=== PATIENT | female | born 1985 | race Caucasian/White ===

== ENCOUNTER 2021-12-25 03:15 | Emergency (ER) | payer OTHER ==
[2021-12-25 03:41] VITALS: BP 130/71; PULSE 66; TEMP 98.1; BMI 25.7
[2021-12-25] MEDS ORDERED: LIDOCAINE 5% TOPICAL PATCH TP ONE (03:53)
[2021-12-25] MEDS ORDERED: ACETAMINOPHEN 500 MG TABLET (FP) PO ONE (03:57)
[2021-12-25] MEDS ORDERED: ACETAMINOPHEN 325 MG TABLET (FP) ONE (03:59)
[2021-12-25] MEDS ORDERED: LIDOCAINE 5% TOPICAL PATCH ONE (03:59)
[2021-12-25] MEDS ORDERED: METHOCARBAMOL 500 MG TABLET PO ONE ×2 (04:13→04:24)
[2021-12-25] MEDS ORDERED: METHOCARBAMOL 500 MG TABLET ONE (04:29)
[2021-12-25 05:45] LABS: EPI CELLS >36 /uL (0-25.1); HYALINE CASTS 1 /uL (0-3.1); URINE APPEARANCE CLEAR; URINE BACTERIA 713 /uL (0-1359); URINE BILIRUBIN NEGATIVE (NEGATIVE); URINE COLOR YELLOW; URINE GLUCOSE (UA) NEGATIVE (NEGATIVE); URINE KETONE NEGATIVE (NEGATIVE); URINE LEUK ESTERASE TRACE (NEGATIVE); URINE NITRITE NEGATIVE (NEGATIVE); URINE PROTEIN NEGATIVE (NEGATIVE); URINE RBC 9 /uL (0-23.9); URINE UROBILINOGEN 0.2 mg/dL (0.2-1.0); URINE WBC 60 /uL (0-25.8)
[2021-12-25 09:45] LABS: URINE CRYSTALS PRESENT /hpf
[2021-12-25] MEDS ORDERED: LIDOCAINE PATCH REMOVAL MC SCH (22:00)
== END 2021-12-25 07:42 | disposition home or self-care (01) ==
LOC: JER 03:15
DX: R10.9 Unspecified abdominal pain (principal)
CPT/HCPCS: 74176-TC; 81003; 84703; 87086; 99284-25

== ENCOUNTER 2022-03-12 04:27 | Day surgery (SDC) | payer OTHER ==
[2022-02-22 10:56] VITALS: BMI 28.3
[2022-03-12] MEDS ORDERED: BUPIVACAINE HCL/PF 0.75% 10 ML VIAL NR ONE (11:31)
[2022-03-12] MEDS ORDERED: LIDOCAINE HCL 1%, 10 MG/ML (50 mL VIAL) NR ONE (11:31)
[2022-03-12 12:16] VITALS: BP 121/66; PULSE 63; TEMP 97.5
== END 2022-03-12 12:10 | disposition home or self-care (01) ==
LOC: JASU-SURG 04:27
PROVIDERS: ATTEND Pain Medicine Pain Medicine
PROC: BR16YZZ Fluoroscopy of Lumbar Facet Joint(s) using Other Contrast (ICD-10-PCS; 2022-03-12)
PROC: 3E0T3BZ Introduction of Anesthetic Agent into Peripheral Nerves and Plexi, Percutaneous Approach (ICD-10-PCS; principal; 2022-03-12 17:30)
DX: M47.816 Spondylosis without myelopathy or radiculopathy, lumbar region (principal)
CPT/HCPCS: 76000-TC-FY; 81025

== ENCOUNTER 2023-04-01 20:32 | Emergency (ER) | payer OTHER ==
[2023-04-01 20:47] VITALS: BP 99/61; PULSE 74; RESP 18; TEMP 98.2; BMI 23.3
[2023-04-01] MEDS ORDERED: KETOROLAC TROMETHAMINE 30 MG/1 ML VIAL IM ONE (21:42)
[2023-04-01] MEDS ORDERED: LIDOCAINE 5% TOPICAL PATCH TP ONE (21:43)
[2023-04-01] MEDS ORDERED: DEXAMETHASONE SOD PHOSPHATE 10 MG/1 ML VIAL IM ONE (21:43)
[2023-04-01] MEDS ORDERED: METHOCARBAMOL 500 MG TABLET PO ONE (21:43)
[2023-04-01] MEDS ORDERED: LIDOCAINE 5% TOPICAL PATCH ONE (21:55)
[2023-04-01] MEDS ORDERED: METHOCARBAMOL 500 MG TABLET ONE (21:55)
[2023-04-01] MEDS ORDERED: KETOROLAC TROMETHAMINE 30 MG/1 ML VIAL ONE (21:56)
[2023-04-01] MEDS ORDERED: DEXAMETHASONE SOD PHOSPHATE 10 MG/1 ML VIAL ONE (21:56)
[2023-04-01 21:57] LABS: EPI CELLS >36 /uL (0-25.1); HCG,QUALITATIVE URINE Negative; HYALINE CASTS 1 /uL (0-3.1); URINE APPEARANCE CLEAR; URINE BACTERIA 356 /uL (0-1359); URINE BILIRUBIN NEGATIVE (NEGATIVE); URINE COLOR YELLOW; URINE GLUCOSE (UA) NEGATIVE (NEGATIVE); URINE KETONE NEGATIVE (NEGATIVE); URINE LEUK ESTERASE 1+ (NEGATIVE); URINE NITRITE NEGATIVE (NEGATIVE); URINE PROTEIN NEGATIVE (NEGATIVE); URINE RBC 14 /uL (0-23.9); URINE UROBILINOGEN 0.2 mg/dL (0.2-1.0); URINE WBC 41 /uL (0-25.8)
== END 2023-04-01 22:44 | disposition home or self-care (01) ==
LOC: JERFT 20:32
PROC: 3E023GC Introduction of Other Therapeutic Substance into Muscle, Percutaneous Approach (ICD-10-PCS; principal; 2023-04-01)
PROC: 3E0233Z Introduction of Anti-inflammatory into Muscle, Percutaneous Approach (ICD-10-PCS; 2023-04-01)
DX: M54.41 Lumbago with sciatica, right side (principal); G89.29 Other chronic pain
CPT/HCPCS: 81003; 84703; 87086; 99284-25; J1100